=== PATIENT | male | born 1975 | race African-American/Black ===

== ENCOUNTER 2018-10-13 03:21 | Emergency (ER) | payer MEDICARE, OTHER ==
[~2018-10-13] VITALS: Ht 185.4 cm; Wt 113.4 kg
--- NOTE | 2018-10-13 03:30 | NUR ---
ED Nurse Note: pt found altered on bus with alcohol present, police called to get off bus, pt awkens but is very altered. nad. vss ao1
--- NOTE | 2018-10-13 03:56 | Emergency Room Report ---
History of Present Illness General Chief Complaint: Altered Mental Status Source: EMS Present Illness HPI Is a 42-year-old male with unknown past medical history. He was brought in by EMS with chief complaint alcohol intoxication. He was on the bus and passed out. The manager business management called 911. He had a near empty bottle of vodka next to him. Unable to get any other history. No trauma. Patient History Past Medical History: see triage record, old chart reviewed, unable to obtain Past Surgical History: unable to obtain Pertinent Family History: unable to obtain Social History: Reports: alcohol use Immunizations: other Reviewed Nursing Documentation: PMH: Agreed; PSxH: Agreed Nursing Documentation-PMH Past Medical History Deferred: Patient Unconscious Review of Systems All Other Systems: limited - Secondary to intoxication Physical Exam Vital Signs Date Time Temp Pulse Resp B/P (MAP) Pulse Ox O2 Delivery O2 Flow Rate FiO2 10/13/18 03:22 98.4 92 20 129/78 (95) 97 Room Air Vitals normal Sp02 EP Interpretation: reviewed, normal General Appearance: well appearing, no apparent distress, other - Somnolent Head: normocephalic, atraumatic Eyes: bilateral eye PERRL, bilateral eye EOMI ENT: hearing grossly normal, normal pharynx Neck: full range of motion, supple, no meningismus Respiratory: chest non-tender, lungs clear, normal breath sounds Cardiovascular #1: regular rate, rhythm, no murmur Gastrointestinal: normal bowel sounds, non tender, no mass, no organomegaly, no bruit, non-distended Musculoskeletal: back normal, gait/station normal, normal range of motion Psychiatric: mood/affect normal Medical Decision Making Diagnostic Impression: Primary Impression: Alcohol intoxication Qualified Codes: F10.920 - Alcohol use, unspecified with intoxication, uncomplicated ER Course Patient with acute alcohol intoxication. No trauma to warrant x-ray or CT scan. He has multiple IV fu and EKG leads on him indicating multiple different hospital visits. Will observe until clinical sobriety. Last Vital Signs Date Time Temp Pulse Resp B/P (MAP) Pulse Ox O2 Delivery O2 Flow Rate FiO2 10/13/18 03:22 98.4 92 20 129/78 (95) 97 Room Air Status: improved Disposition: HOME, SELF-CARE Condition: Stable Scripts Unable to Obtain Active Prescriptions or Reported Meds Additional Instructions: Abstain from drinking to excess. Follow-up with your doctor in 7 days. Go to rehab. Return if worse. Prince Ureña MD Oct 13, 2018 03:56
--- NOTE | 2018-10-13 04:30 | NUR ---
ED Nurse Note: PATIENT SLEEPING COMFORTABLY IN BED. UNABLE TO FOLLOW COMMANDS. VSS. NAD.
[2018-10-13 05:06] VITALS: BP 135/80
--- NOTE | 2018-10-13 05:30 | NUR ---
ED Nurse Note: PATIENT SLEEPING COMFORTABLY IN BED. UNABLE TO FOLLOW COMMANDS. VSS. NAD.
[2018-10-13 06:00] VITALS: BP 137/81
--- NOTE | 2018-10-13 06:00 | NUR ---
ED Nurse Note: PATIENT AOX4. PT PROVIDED INFORMATION FOR DESTINATION AFTER DISCHARGE. PT PROVIDED HOME ADDRESS, PHONE NUMBER, AND SS#. NAD.VSS
[2018-10-13 06:15] VITALS: BP 135/80
--- NOTE | 2018-10-13 06:15 | NUR ---
ER DISCHARGE NOTE: Patient is cleared to be discharged per ERMD, pt is aox4, on room air, with stable vital signs. pt was given dc instructions, pt was able to verbalize understanding, pt id band and iv site removed without complications. pt is able to ambulate with steady gait. pt took all belongings.
== END 2018-10-13 06:15 | disposition home or self-care (01) ==
LOC: EDBD 03:21 → EMR 03:52
DX: F10.129 Alcohol abuse with intoxication, unspecified (principal)
CPT/HCPCS: 99283